=== PATIENT | male | born 1980 | race Caucasian/White ===

== ENCOUNTER 2016-12-26 08:18 | Day surgery (SDC) | payer BC ==
[~2016-12-26] VITALS: Ht 175.3 cm; Wt 91.0 kg
[~2016-12-26 08:18] MED LIST: DICY10CA48 PO; LIDOCAINE 1% (10mg/ml) 2ml SDV INJ ONE; LR 1,000 ML IV SCH
--- OUTSIDE RECORDS SUMMARY | 2016-12-26 08:23 | XMS REPORT | Referral Summary ---
Author Author [facility] Organization [facility] Address Unknown Phone Unavailable Care Team Providers Care Extractor Operator Solvent Process Name Role Phone Alma Garcia Primary Care Physician [phone] Encounter [facility] [phone] Date(s): 11/18/16 - 11/18/16 [facility] [address] [place] [address] ZEYAD Lacy [id number] Discharge Diagnosis: LLQ pain Discharge Diagnosis: Diverticulitis Discharge Diagnosis: Diverticulitis of large intestine with perforation and abscess with bleeding Discharge Disposition: 01-Home or Self Care Attending Physician: Steve Lui MD Admitting Physician: Steve Lui MD Referring Physician: Walter Garcia MD Vital Signs Most recent to 1 oldest [Reference Range]: Temperature Oral 36.7 degC [35.8-37.3 degC] (11/18/16 3:53 PM) Peripheral Pulse 96 bpm Rate [60-100 bpm] (11/18/16 3:53 PM) Respiratory Rate 20 br/min [14-20 br/min] (11/18/16 3:53 PM) Blood Pressure 106/70 mmHg [90-140/60-90 mmHg] (11/18/16 3:53 PM) Problem List Condition Effective Dates Status Health Status Informant Acute Active pain(Confirmed) Antimicrobial Active resistant organism(Confirmed)1 Antimicrobial Active resistant organism(Confirmed)2 Antimicrobial Active resistant organism(Confirmed)3 Anxiety(Confirmed) Active At risk for Active infection(Confirmed) 4 Beta lactam Active resistant bacterial infection(Confirmed) 5 Beta lactam Active resistant bacterial infection(Confirmed) 6 Beta lactam Active resistant bacterial infection(Confirmed) 7 Bowel Active dysfunction(Confirme d)8 Diverticulitis(Confi Active rmed) Irregular Active heartbeat(Confirmed) Nephrolithiasis(Conf Active irmed) Mitral valve Active prolapse(Confirmed) Depression(Confirmed Active ) Obesity(Confirmed) Active patient Obesity(Confirmed) Active patient Tobacco Active patient user(Confirmed) TIA (transient Active ischemic attack)(Confirmed) 1Wound from NOT FOUND collected 08/26/16 17:00:00 TRANSACTION PROCESSOR 2Wound from NOT FOUND collected 08/26/16 17:00:00 TRANSACTION PROCESSOR 3Wound from NOT FOUND collected 08/26/16 17:00:00 TRANSACTION PROCESSOR 4Problem added automatically by system based on initiation of At Risk for Infection in Nutrition Plan of Care 5Wound from NOT FOUND collected 08/26/16 17:00:00 TRANSACTION PROCESSOR 6Wound from NOT FOUND collected 08/26/16 17:00:00 TRANSACTION PROCESSOR 7Wound from NOT FOUND collected 08/26/16 17:00:00 TRANSACTION PROCESSOR 8Problem added automatically by system based on initiation of Bowel Dysfunction Plan of Care Allergies, Adverse Reactions, Alerts No Known Medication Allergies Medications Bactrim DS 800 mg-160 mg oral tablet 1 tabs, Oral, BID, X 14 days, # 28 tabs, 0 Refill(s), Pharmacy: [facility] #[id number] Start Date: 11/18/16 Stop Date: 12/02/16 Status: Ordered Cipro Oral, q12hr, 0 Refill(s) Start Date: 11/18/16 Status: Ordered Compazine 0 Refill(s) Start Date: 11/18/16 Status: Ordered Flagyl 500 mg oral tablet mg tabs, Oral, q8hr, 0 Refill(s) Start Date: 11/18/16 Status: Ordered ibuprofen 800 mg, Oral, BID, 0 Refill(s) Start Date: 08/25/16 Status: Ordered Gary 5 mg-325 mg oral tablet tabs, Oral, q6hr, 0 Refill(s) Start Date: 11/18/16 Status: Ordered Tylenol Extra Strength 1,000 mg, Oral, BID, as needed for pain, 0 Refill(s) Start Date: 08/25/16 Status: Ordered Results No data available for this section Immunizations Given and Recorded Vaccine Date Status Refusal Reason tetanus-diphth toxoids (Td) adult/adol 04/10/11 Recorded Procedures Procedure Date Related Diagnosis Body Site Laparoscopic cholecystectomy1 07/04/16 Cardiac catheterisation 2010 Cardiac catheterisation 2006 Hernia, inguinal 1robotic with firfly imaging, for Biliary Dyskinesia Social History Social History Type Response Smoking Status Current every day smoker; Type: Cigarettes; Tobacco use per day: 1 Pack Assessment and Plan Extracted from: Title: Ambulatory Patient Education Author: Steve Lui MD Date: Emergency Medicine Diverticulitis Diverticulitis is inflammation or infection of small pouches in your colon that form when you have a condition called diverticulosis. The pouches in your colon are called diverticula. Your colon, or large intestine, is where water is absorbed and stool is formed. Complications of diverticulitis can include: Bleeding. Severe infection. Severe pain. Perforation of your colon. Obstruction of your colon. CAUSES Diverticulitis is caused by bacteria. Diverticulitis happens when stool becomes trapped in diverticula. This allows bacteria to grow in the diverticula, which can lead to inflammation and infection. RISK FACTORS People with diverticulosis are at risk for diverticulitis. Eating a diet that does not include enough fiber from fruits and vegetables may make diverticulitis more likely to develop. SYMPTOMS Symptoms of diverticulitis may include: Abdominal pain and tenderness. The pain is normally located on the left side of the abdomen, but may occur in other areas. Fever and chills. Bloating. Cramping. Nausea. Vomiting. Constipation. Diarrhea. Blood in your stool. DIAGNOSIS Your health care provider will ask you about your medical history and do a physical exam. You may need to have tests done because many medical conditions can cause the same symptoms as diverticulitis. Tests may include: Blood tests. Urine tests. Imaging tests of the abdomen, including X-rays and CT scans. When your condition is under control, your health care provider may recommend that you have a colonoscopy. A colonoscopy can show how severe your diverticula are and whether something else is causing your symptoms. TREATMENT Most cases of diverticulitis are mild and can be treated at home. Treatment may include: Taking qvxj-xex-ntbvjyy pain medicines. Following a clear liquid diet. Taking antibiotic medicines by mouth for 710 days. More severe cases may be treated at a hospital. Treatment may include: Not eating or drinking. Taking prescription pain medicine. Receiving antibiotic medicines through an IV tube. Receiving fluids and nutrition through an IV tube. Surgery. HOME CARE INSTRUCTIONS Follow your health care provider's instructions carefully. Follow a full liquid diet or other diet as directed by your health care provider. After your symptoms improve, your health care provider may tell you to change your diet. He or she may recommend you eat a high-fiber diet. Fruits and vegetables are good sources of fiber. Fiber makes it easier to pass stool. Take fiber supplements or probiotics as directed by your health care provider. Only take medicines as directed by your health care provider. Keep all your follow-up appointments. SEEK MEDICAL CARE IF: Your pain does not improve. You have a hard time eating food. Your bowel movements do not return to normal. SEEK IMMEDIATE MEDICAL CARE IF: Your pain becomes worse. Your symptoms do not get better. Your symptoms suddenly get worse. You have a fever. You have repeated vomiting. You have bloody or black, tarry stools. MAKE SURE YOU: Understand these instructions. Will watch your condition. Will get help right away if you are not doing well or get worse. This information is not intended to replace advice given to you by your health care provider. Make sure you discuss any questions you have with your health care provider. Document Released: 06/24/2006 Document Revised: 09/19/2014 Document Reviewed: [employer] Patient Education 2016 [employer] No follow up information was provided.
--- OUTSIDE RECORDS SUMMARY | 2016-12-26 08:23 | XMS REPORT | Continuity of Care Document ---
Author Author [facility] Organization [facility] Address Unknown Phone Unavailable Allergies Active Description Code Type Severity Reaction Onset Reported/Identified Relationship to Patient Clinical Status Yes No Known Medication Allergies NKMA N/A N/A 12/04/2014 Yes No Known Medication Allergies NKMA N/A N/A 12/04/2014 Medications Medication Packaging Start Date Stop Date Route Dosage Sig venlafaxine(Effexor XR 75 mg oral capsule, extended release ) 2 caps 02/26/2015 08/25/2016 Oral 150 mg 150 mg=2 caps, Oral, Daily, 30 caps, 0 Refill(s) albuterol(Ventolin HFA 90 mcg/inh inhalation aerosol) 2 puffs 02/26/2015 03/10/2015 Inhalation 2 puffs, Inhalation, QID, for 30 days, PRN: as needed for wheezing, 8 g, 0 Refill(s) meclizine(meclizine 25 mg oral tablet) 1 tabs 01/01/20162015 Oral 25 mg 25 mg=1 tabs, Oral, TID, for 10 days, PRN: as needed for dizziness , 30 tabs, 0 Refill(s) HYDROcodone-acetaminophen(Fitzpatrick 7.5 mg-325 mg oral tablet) 1 tabs 06/17/2016 07/15/2016 Oral 1 tabs, Oral, q6hr, FROM PCP, PRN: as needed for pain, 0 Refill(s) HYDROcodone-acetaminophen(Fitzpatrick 7.5 mg-325 mg oral tablet) 1 tabs 06/17/2016 07/05/2016 Oral 1 tabs, Oral, q6hr, PRN: as needed for pain, 30 tabs, 0 Refill(s) ondansetron(Zofran) 2 mL 08/25/2016 08/27/2016 IV Push 4 mg 4 mg= 2 mL, IV Push, q30min, PRN: Nausea ketorolac(Toradol) 1 mL 08/25/2016 08/25/2016 IV Push 30 mg 30 mg =1 mL, IV Push, Once HYDROmorphone(Dilaudid) 1 mL 08/25/2016 08/25/2016 IV Push 1 mg 1 mg=1 mL, IV Push, Once cefTRIAXone(Rocephin) 10 mL 08/25/2016 08/25/2016 IV Push 1 g 1 g= 10 mL, IV Push, Once metroNIDAZOLE(Flagyl) 100 mL 08/25/2016 08/25/2016 IV Piggyback 500 mg 500 dm=117 mL, 100 mL/hr, IV Piggyback, Once ibuprofen(ibuprofen) 08/25/2016 Oral 800 mg 800 mg, Oral, BID , 0 Refill(s) HYDROmorphone(Dilaudid) 1 mL 08/25/2016 08/25/2016 IV Push 1 mg 1 mg=1 mL, IV Push, Once Lactated Ringers Injection(Lactated Ringers 1,000 mL) 1,000 mL 08/25/2016 08/27/2016 IV 125 mL/hr, IV, Stop: 09/01/16 17:49:00 ASSOCIATE EDITOR oxyCODONE(oxyCODONE) 08/25/2016 08/27/2016 Oral 5-10 mg, Oral , q4hr, PRN: Pain Moderate (4-6) metoclopramide(metoclopramide) 2 mL 08/25/2016 08/27/2016 IV Push 10 mg 10 mg=2 mL, IV Push, q6hr, PRN: Nausea or Vomiting ondansetron(Zofran) 2 mL 08/25/2016 08/27/2016 IV Push 4 mg 4 mg= 2 mL, IV Push, q6hr, PRN: Nausea or Vomiting HYDROmorphone(Dilaudid range dose) 1 mL 08/25/2016 08/27/2016 IV Push 1 mg 1 mg=1 mL, IV Push, q2hr, PRN: Pain Severe (7-10) metroNIDAZOLE(Flagyl) 100 mL 08/25/2016 08/27/2016 IV Piggyback 500 mg 500 pi=890 mL, 100 mL/hr, IV Piggyback, BID potassium chloride(potassium chloride 10 mEq/50 mL intravenous solution) 50 mL 08/25/2016 08/25/2016 IV Piggyback 10 mEq 10 mEq=50 mL, 50 mL/hr, IV Piggyback, q1hr acetaminophen(acetaminophen) 2 tabs 08/25/2016 08/27/2016 Oral 1,000 mg 1,000 mg=2 tabs, Oral, q6hr, PRN: Fever potassium chloride(potassium chloride 10 mEq/50 mL intravenous solution) 100 mL 08/26/2016 08/26/2016 IV Piggyback 10 mEq 10 aNw=976 mL, 100 mL/hr, IV Piggyback, q1hr midazolam(Versed) 1 mL 08/26/2016 08/26/2016 IV Push 1 mg 1 mg= 1 mL, IV Push, q5min, PRN: Sedation lidocaine(lidocaine 1% (buffered) injection; 10mL) 10 mL 08/26/2016 08/26/2016 IntraDermal 10 mL, IntraDermal, Once fentaNYL(Sublimaze) 1 mL 08/26/2016 08/26/2016 IV Push 50 mcg 50 mcg=1 mL, IV Push, q5min, PRN: Sedation Sodium Chloride 0.9%(sodium chloride 0.9% 500 mL) 500 mL 08/26/2016 08/26/2016 IV KVO, IV cefuroxime(Ceftin 500 mg oral tablet) 1 tabs 08/27/20162015 Oral 500 mg 500 mg=1 tabs, Oral, q24hr metroNIDAZOLE(metroNIDAZOLE 500 mg oral tablet) 1 tabs 08/27/2016 09/02/2016 Oral 500 mg 500 mg=1 tabs, Oral, BID, 28 tabs, 0 Refill(s) cefuroxime(cefuroxime 500 mg oral tablet) 1 tabs 08/27/201602/2016 Oral 500 mg 500 mg=1 tabs, Oral, BID, 28 tabs, 0 Refill(s) oxyCODONE(oxyCODONE 5 mg oral tablet) 08/27/2016 09/27/2016 Oral 5-10 mg, Oral, q4hr, PRN: Pain Moderate (4-6), 30 tabs, 0 Refill(s) metroNIDAZOLE(Flagyl 500 mg oral tablet) tabs 11/18/2016 Oral mg mg=tabs, Oral, q8hr, 0 Refill(s) ciprofloxacin(Cipro) 11/18/2016 Oral Oral, q12hr, 0 Refill( s) prochlorperazine(Compazine) 11/18/2016 0 Refill(s) HYDROcodone-acetaminophen(Fitzpatrick 5 mg-325 mg oral tablet) tabs 11/18/2016 Oral tabs, Oral, q6hr, 0 Refill(s) sulfamethoxazole-trimethoprim(Bactrim DS 800 mg-160 mg oral tablet) 1 tabs 12/02/2016 Oral 1 tabs, Oral, BID, for 14 days, 28 tabs, 0 Refill(s) Problems Date Dx Coded Attending Type Code Diagnosis Diagnosed By 03/18/2016 Nguyen Denise Final F32.9 Major depressive disorder, single episode, unspecified 03/18/2016 Nguyen Denise Reason R45.851 Suicidal ideations 08/25/2016 Mckoy Stephen Admitting K57.32 08/29/2016 Mckoy Stephen Final E87.6 Hypokalemia 08/29/2016 Mckoy Stephen Final F17.210 Nicotine dependence, cigarettes, uncomplicated 08/29/2016 Mckoy Stephen Final I34.1 Nonrheumatic mitral (valve) prolapse 08/29/2016 Mckoy Stephen Admitting R10.32 Left lower quadrant pain 08/29/2016 Mckoy Stephen Final Z86.73 Personal history of transient ischemic attack (TIA), and cerebral infarctio 08/29/2016 Mckoy Stephen Final K57.20 Diverticulitis of large intestine with perforation and abscess without blee Procedures Code Description Performed By Performed On [id number] Drainage of Peritoneal Cavity with Drainage Device, Percutaneous Approach 08/26/2016 Results Test Result Range CBC With Platelet and Differential - 03/10/16 21:15 Absolute Basophils 0.03 10*3 0.00-0.20 Absolute Eosinophils 0.27 10*3 0.00-0.50 Absolute Lymphocytes 2.60 10*3 0.80-3.30 Absolute Monocytes 0.93 10*3 0.30-1.00 Absolute Neutrophils 5.29 10*3 1.90-7.00 Basophils 0 % 0-2 Eosinophils 3 % 0-4 HCT 41.2 % 42.0-52.0 HGB 14.0 g/dL 14.0-18.0 Immature Granulocytes 0.3 % 0.0-1.0 Lymphocytes 28 % 20-46 MCH 29.9 pg 27.0-32.0 MCHC 34.0 g/dL 32.0-36.0 MCV 88.0 fL 82.0-99.0 Monocytes 10 % 4-11 MPV 9.4 fL 9.4-12.3 Neutrophils 58 % 51-75 Platelet Count 251 K/uL 150-400 RBC 4.68 10*6/uL 4.60-6.20 RDW 13.1 % 11.5-14.5 WBC 9.2 K/uL 4.8-10.8 Comprehensive Metabolic Panel (CMP) - 03/10/16 21:15 Albumin 3.5 g/dL 3.5-4.8 Alkaline Phosphatase 64 U/L 26-104 ALT (SGPT) 29 U/L 17-63 Anion Gap 9 NA 3-20 AST (SGOT) 23 U/L 15-41 Bilirubin Total 0.7 mg/dL 0.2-1.2 BUN 15 mg/dL 4-20 Calcium 9.2 mg/dL 8.6-10.0 Chloride 109 mEq/L 99-109 CO2 24 mEq/L 22-32 Creatinine 0.91 mg/dL 0.64-1.27 Globulin 2.7 g/dL 1.9-4.3 Glucose 98 mg/dL 70-100 Potassium 3.5 mEq/L 3.6-5.1 Protein 6.2 g/dL 6.1-7.9 Sodium 142 mEq/L 136-144 Obstetric Panel - 07/28/16 08:59 Absolute Basophils 0.02 10*3 0.00-0.20 Absolute Eosinophils 0.07 10*3 0.00-0.50 Absolute Lymphocytes 1.37 10*3 0.80-3.30 Absolute Monocytes 0.39 10*3 0.30-1.00 Absolute Neutrophils 8.46 10*3 1.90-7.00 Basophils 0 % 0-2 Eosinophils 1 % 0-4 HCT 39.0 % 37.0-47.0 HGB 13.1 g/dL 12.0-16.0 Immature Granulocytes 0.2 % 0.0-1.0 Lymphocytes 13 % 20-46 MCH 31.0 pg 27.0-32.0 MCHC 33.6 g/dL 32.0-36.0 MCV 92.4 fL 82.0-99.0 Monocytes 4 % 4-11 MPV 11.1 fL 8.8-14.8 Neutrophils 82 % 51-75 Platelet Count 269 K/uL 150-400 RBC 4.22 10*6/uL 4.00-5.20 RDW 13.1 % 11.5-14.5 WBC 10.3 K/uL 4.8-10.8 Hepatitis B Surface Antigen Negative RPR Non-reactive NA Rubella Antibody, IgG 2.18 OD Ratio > 1.09 Rubella IgG Positive NA MMRV Interpretation - NA eGFR - 03/10/16 21:15 eGFR >60 NA >60 TSH with Reflex Free T4 - 03/10/16 21:15 TSH with Reflex Free T4 1.57 uIU/mL 0.35- 5.50 Urinalysis with reflex microscopic - 03/10/16 22:10 Appearance Cloudy NA Bilirubin Negative NA Negative Blood Negative NA Negative Color Yellow NA Glucose, Urine Negative Negative Ketones Negative Negative Leukocyte Esterase Negative NA Negative Nitrites Negative NA Negative pH 6.0 NA 5.0-8.0 Protein Negative NA Negative Specific [place] 1.020 NA 1.003-1.030 UA Collection type Voided NA Urobilinogen 2.0 mg/dL <1.0 CBC With Platelet No Differential - 08/26/16 05:02 HCT 34.3 % 42.0-52.0 HGB 11.0 g/dL 14.0-18.0 MCH 28.7 pg 27.0-32.0 MCHC 32.1 g/dL 32.0-36.0 MCV 89.6 fL 82.0-99.0 MPV 9.4 fL 9.4-12.3 Platelet Count 269 K/uL 150-400 RBC 3.83 10*6/uL 4.60-6.20 RDW 13.2 % 11.5-14.5 WBC 11.2 K/uL 4.8-10.8 Renal Function Panel - 08/26/16 05:02 Albumin 2.4 g/dL 3.5-4.8 Anion Gap 6 NA 3-20 BUN 10 mg/dL 4-20 Calcium 8.1 mg/dL 8.6-10.0 Chloride 104 mEq/L 99-109 CO2 25 mEq/L 22-32 Creatinine 0.85 mg/dL 0.64-1.27 Glucose 102 mg/dL 70-100 Phosphorus 2.7 mg/dL 2.4-4.7 Potassium 3.3 mEq/L 3.6-5.1 Sodium 135 mEq/L 136-144 Magnesium - 08/26/16 05:02 Magnesium 2.0 mg/dL 1.8-2.5 eGFR - 08/26/16 05:02 eGFR >60 NA >60 PTT/PT (INR) - 08/26/16 05:02 INR 1.3 NA 0.9-1.2 PTT 29.8 seconds 25.0-35.0 CBC With Platelet No Differential - 08/27/16 07:07 HCT 33.9 % 42.0-52.0 HGB 11.0 g/dL 14.0-18.0 MCH 28.8 pg 27.0-32.0 MCHC 32.4 g/dL 32.0-36.0 MCV 88.7 fL 82.0-99.0 MPV 9.3 fL 9.4-12.3 Platelet Count 341 K/uL 150-400 RBC 3.82 10*6/uL 4.60-6.20 RDW 12.7 % 11.5-14.5 WBC 7.7 K/uL 4.8-10.8 Renal Function Panel - 08/27/16 07:07 Albumin 2.3 g/dL 3.5-4.8 Anion Gap 8 NA 3-20 BUN 5 mg/dL 4-20 Calcium 8.1 mg/dL 8.6-10.0 Chloride 104 mEq/L 99-109 CO2 27 mEq/L 22-32 Creatinine 0.77 mg/dL 0.64-1.27 Glucose 103 mg/dL 70-100 Phosphorus 2.7 mg/dL 2.4-4.7 Potassium 3.5 mEq/L 3.6-5.1 Sodium 139 mEq/L 136-144 Magnesium - 08/27/16 07:07 Magnesium 2.1 mg/dL 1.8-2.5 eGFR - 08/27/16 07:07 eGFR >60 NA >60 Encounters ACCT No. Visit Date/Time Discharge Status Pt. Type Provider Facility Loc./Unit Complaint [id number] 08/25/2016 12:28:00 2015 19:17:00 DIS Inpatient Mckoy Stephen [facility] J5W Diverticulitis, abd abscess [id number] 03/10/2016 12:53:00 2015 00:30:00 DIS Emergency [facility]ise [facility] [place] [facility] [id number] 11/19/2016 05:16:48 Document Registration [id number] 08/28/2016 05:16:32 Document Registration [id number] 08/27/2016 05:15:50 Document Registration [id number] 08/26/2016 05:17:23 Document Registration [id number] 06/18/2016 05:17:39 Document Registration [id number] 01/02/2016 05:18:03 Document Registration [id number] 07/18/2015 12:37:40 Document Registration [id number] 07/18/2015 12:29:58 Document Registration
--- OUTSIDE RECORDS SUMMARY | 2016-12-26 08:23 | XMS REPORT | Referral Summary ---
Author Author [facility] Organization [facility] Address Unknown Phone Unavailable Care Team Providers Care Geospatial Information Technologist Name Role Phone Alma Garcia Primary Care Physician [phone] Encounter VC Date(s): 07/15/16 - 07/15/16 [facility] [address] [place] [address] ZEYAD Lacy [id number] Discharge Diagnosis: S/p laparoscopic cholecystectomy Discharge Disposition: 01-Home or Self Care Attending Physician: Jessica Hartman APRN Admitting Physician: Jessica Hartman APRN Referring Physician: Walter Garcia MD Vital Signs Most recent to 1 oldest [Reference Range]: Temperature Tympanic 36.7 degC [36.6-38.1 degC] (07/15/16 9:47 AM) Problem List Condition Effective Dates Status Health Status Informant Anxiety(Confirmed) Active Irregular Active heartbeat(Confirmed) Nephrolithiasis(Conf Active irmed) Mitral valve Active prolapse(Confirmed) Depression(Confirmed Active ) Obesity(Confirmed) Active patient Obesity(Confirmed) Active patient Tobacco Active patient user(Confirmed) TIA (transient Active ischemic attack)(Confirmed) Allergies, Adverse Reactions, Alerts No Known Medication Allergies Medications Effexor XR 75 mg oral capsule, extended release 150 mg 2 caps, Oral, Daily, # 30 caps, 0 Refill(s) Start Date: 02/26/15 [facility] See Instructions, OXYCARBONZINE (SIEZURE MED USED FOR A MOOD STABILIZER) 75 MG QD, 0 Refill(s) Start Date: 06/17/16 Status: Ordered Results No data available for this section Immunizations Vaccine Date Refusal Reason tetanus-diphth toxoids (Td) adult/adol 04/10/11 Procedures Procedure Date Related Diagnosis Body Site Laparoscopic cholecystectomy1 07/04/16 Cardiac catheterisation 2009 Cardiac catheterisation 2006 Hernia, inguinal 1robotic with firfly imaging, for Biliary Dyskinesia Social History Social History Type Response Smoking Status Current every day smoker; Type: Cigarettes; Tobacco use per day: 1 Pack Assessment and Plan Extracted from: Title: Office Visit Note Author: Jessica Hartman WHITE KID BUFFER Date: 07/15/16 Assessment/Plan 1.S/p laparoscopic cholecystectomy Pathology indicates benign gallbladder with minimal chronicmucosal inflammation. No atypia or neoplasm identified. Ordered: Postoperative Est [id number] Continue to use common sense. If an activity is causing pain, that is a sign that you need to "back off" and wait a little longer before lifting something that heavy or doing that activity. Do not hesitate to contact us with any surgical concerns. Continue with your general medical care through your primary care physician.
--- OUTSIDE RECORDS SUMMARY | 2016-12-26 08:23 | XMS REPORT | Continuity of Care Document ---
Author Author [facility] Organization [facility] Address Unknown Phone Unavailable Support Name Relationship Address Phone HATTIE ZAPIEN MD Caregiver [address] [place] [address] Unavailable JANUARYJAMEY DO Caregiver [address] [place] [address] Unavailable BLANCHE HARTMAN Next Of Kin [address] [place] [address] Insurance Providers Guarantor Michael Hartman Address [address] [place] [address] Email [email or web address] Policy Number [id number] Subscriber's Name Michael Hartman Relationship 18 Self Group Number [id number] Advance Directives Directive Response Recorded Date/Time Advanced Directives Type None 06/04/16 10:19am Chief Complaint and Reason for Visit Chief Complaint Abdominal Pain Reason for Visit [id number] Problems Active Problems Medical Problem Onset Date Status Anxiety Unknown Chronic Depression Unknown Chronic Heart palpitations Unknown Acute History of nephrolithiasis Unknown Chronic Irregular heart beat Unknown Chronic Left ankle sprain Unknown Acute Mitral valve prolapse Unknown Chronic Nephrolithiasis Unknown Sinusitis Unknown Acute TIA (transient ischemic attack) Unknown Past Problems Medical Problem Onset Date Abdominal pain, left lower quadrant Unknown Constipation by delayed colonic transit Unknown Diverticulitis Unknown Diverticulitis of intestine with abscess Unknown Kidney stone on left side Unknown RUQ abdominal pain Unknown Right lower quadrant abdominal pain Unknown Medications Current Home Medications Medication Dose Units Route Directions Days Qty Instructions Start Date Dicyclomine Hcl (Bentyl) 10 Mg Capsule 10 Mg Oral Every 6 Hr Prn as needed for Cramps 10 Days 10 Tablet 11/23/16 Hydrocodone/Acetaminophen ([place] 5-325 Tablet) 5-325 Tablet 1 Tab Oral Every 6 Hours as needed for Pain 11/23/16 Sulfamethoxazole/Trimethoprim (Sulfamethoxazole-Tmp Ds Tablet) 1 Each Tablet 1 Tab Oral Twice A Day 11/23/16 Past Home Medications Medication Directions Ordered Status Aspirin 81 Mg Tablet, 81 Mg Oral Daily 03/23/11 Discontinued Hydrocodone/Acetaminophen ([place] 5-325 Tablet) 5-325 Tablet, 1-2 Tab Oral Four Times Daily as needed for Pain 09/19/16 Discontinued Levofloxacin (Levaquin) 500 Mg Tablet, Daily 10/27/16 Discontinued Metoprolol Succinate (Toprol Xl) 50 Mg Tab.sr.24h, 1 Tab Oral Daily 10/01/08 Discontinued Metronidazole 500 Mg Tablet, 500 Mg Oral Three Times A Day 10/27/16 Discontinued Simvastatin 20 Mg Tablet, 20 Mg Oral Daily 03/23/11 Discontinued Sulfamethoxazole/Trimethoprim (Sulfamethoxazole-Tmp Ds Tablet) 1 Each Tablet, 1 Tab Oral Twice A Day 10/30/16 Discontinued Social History Social History Problem Response Recorded Date/Time Onset Date Status Chewing Tobacco Status No 11/23/2016 10:01pm Not Applicable Not Applicable Hx Substance Use No 11/23/2016 10:01pm Not Applicable Not Applicable Hx Alcohol Use N HX OF 11/23/2016 10:01pm Not Applicable Not Applicable Has the pt used tobacco in the last 12 months Yes 10/27/2016 11:33am Not Applicable Not Applicable Tobacco Usage none 12/14/2013 3:02am Not Applicable Not Applicable Query Response Start Date Stop Date Smoking Status Current every day smoker Hospital Discharge Instructions No hospital discharge instructions. Plan of Care Discharge Date 11/23/16 11:45pm Disposition 01 DISCHARGED HOME, SELF-CARE Condition at Discharge Improved Instructions/Education Provided Constipation (ED) Prescriptions See Medication Section Referrals HATTIE ZAPIEN MD Order Date: 1 Week Address: [address] [place] [address] Note: Additional Instructions/Education You have constipation. Take miralax up to six times per day for the next week. Ibuprofen or naproxen can help with the anticipated pain. Bentyl can help with the cramping. Once you have decreased your stool burden, take the miralax daily to help maintain good bowel habits. Follow up with your doctor in the next week. Care Plan and Goals Physician Care Plan Problem: Constipation Goal: Follow up with primary care provider Instructions: Take medications and follow care plan as discussed/written Functional Status No functional status results. Allergies, Adverse Reactions, Alerts Allergen Type Severity Reaction Status Last Updated No Known Drug Allergies Allergy Unknown Active 11/24/16 Immunizations Query Response on File Recorded Date/Time Hx Influenza Vaccination No 10/27/16 11:33am Hx Pneumococcal Vaccination No 10/27/16 11:33am Hx Influenza Vaccination No 10/27/16 11:33am Hx Tetanus Diptheria Y 2-3 YRS. AGO 12/12/13 12:06pm Influenza Vaccine Hx NOT THIS SEASON 11/23/16 10:01pm Tetanus Diptheria Vaccine History 2012-11/23/16 10:01pm Vital Signs Acute Vital Signs Vital Response Date/Time Temperature (Fahrenheit) 97.5 deg F (96.8 - 99.1) 11/14/2016 10:06pm Temperature (Calculated Celsius) 36.83848 degrees C (36.0 - 37.3) 11/14/2016 10:06pm Pulse Rate (adult) 62 bpm (60 - 100) 11/23/2016 11:45pm Respiratory Rate 14 breaths/min (10 - 20) 11/15/2016 2:12am O2 Sat by Pulse Oximetry 97 % (90 - 100) 11/23/2016 11:45pm Oxygen Delivery Method Room Air 10/30/2016 4:18pm Blood Pressure 104/65 mm Hg 11/23/2016 11:45pm Blood Pressure Source Automatic Cuff 10/30/2016 4:18pm Height (Feet) 5 feet 11/14/2016 10:06pm Height (Inches) 9.00 inches 11/14/2016 10:06pm Weight (Kilograms) 95.700 kg 11/14/2016 10:06pm Body Mass Index (BMI) 31.0 11/14/2016 10:06pm Results Laboratory Results Test Name Result Units Flags Reference Collection Date/Time Result Date/ Time Comments Lipase 88 U/L 23-300 10/27/2016 7:58am 10/27/2016 8:34am Neutrophils % (Manual) 43.0 % 33-66 11/14/2016 10:56pm 11/14/2016 11: 37pm Lymphocytes % (Manual) 46.0 % H 23-45 11/14/2016 10:56pm 11/14/2016 11: 37pm Monocytes % (Manual) 2.0 % 0-9.0 11/14/2016 10:56pm 11/14/2016 11:37pm Basophils % (Manual) 1.0 % 0-2 11/14/2016 10:56pm 11/14/2016 11:37pm Metamyelocytes % 8.0 % H 0-0 11/14/2016 10:56pm 11/14/2016 11:37pm Absolute Neutrophils (Manual) 2.9 T/MM3 1.8-7.7 11/14/2016 10:56pm 11:37pm Lymphocytes # (Manual) 3.1 T/MM3 1-4.8 11/14/2016 10:56pm 11/14/2016 11 :37pm Monocytes # (Manual) 0.1 T/MM3 0-0.8 11/14/2016 10:56pm 11/14/2016 11: 37pm Basophils # (Manual) 0.1 T/MM3 0-0.2 11/14/2016 10:56pm 11/14/2016 11: 37pm Metamyelocytes # 0.5 T/MM3 11/14/2016 10:56pm 11/14/2016 11:37pm Red Cell Morphology Comment NORMAL 11/14/2016 10:56pm 11/14/2016 11 :37pm Total Bilirubin 0.40 MG/DL 0.20-1.30 11/14/2016 10:56pm 11/14/2016 11: 19pm Alkaline Phosphatase 53 U/L 38-126 11/14/2016 10:56pm 11/14/2016 11: 19pm Total Protein 6.4 G/DL 6.3-8.2 11/14/2016 10:56pm 11/14/2016 11:19pm Albumin 3.8 G/DL 3.5-5.0 11/14/2016 10:56pm 11/14/2016 11:19pm Globulin 2.6 G/DL 2.4-3.6 11/14/2016 10:56pm 11/14/2016 11:19pm Albumin/Globulin Ratio 1.5 RATIO 1.1-2.2 11/14/2016 10:56pm 11/14/2016 11:19pm Aspartate Amino Transf (AST/SGOT) 18 U/L 17-59 11/14/2016 10:56pm 11/14 11:19pm Alanine Aminotransferase (ALT/SGPT) 34 U/L 21-72 11/14/2016 10:56pm 11:19pm Urine Collection Type CLEANCATCH-MIDSTREAM 11/14/2016 10:56pm 11/14 11:05pm Urine Color YELLOW YELLOW 11/14/2016 10:56pm 11/14/2016 11:05pm Urine Turbidity CLEAR CLEAR 11/14/2016 10:56pm 11/14/2016 11:05pm Urine Specific [place] 1.020 1.015-1.025 11/14/2016 10:56pm 2016 11:05pm Urine pH 6.0 5.0-8.0 11/14/2016 10:56pm 11/14/2016 11:05pm Urine Leukocyte Esterase NEGATIVE NEGATIVE 11/14/2016 10:56pm 2016 11:05pm Urine Nitrite NEGATIVE NEGATIVE 11/14/2016 10:56pm 11/14/2016 11: 05pm Urine Protein NEGATIVE NEGATIVE 11/14/2016 10:56pm 11/14/2016 11: 05pm Urine Glucose (UA) NEGATIVE NEGATIVE 11/14/2016 10:56pm 11/14/2016 11 :05pm Urine Ketones NEGATIVE NEGATIVE 11/14/2016 10:56pm 11/14/2016 11: 05pm Urine Urobilinogen 0.2 EU/DL NORMAL 11/14/2016 10:56pm 11/14/2016 11: 05pm Urine Bilirubin NEGATIVE NEGATIVE 11/14/2016 10:56pm 11/14/2016 11: 05pm Urine Blood TRACE-INTACT A NEGATIVE 11/14/2016 10:56pm 11/14/2016 11: 05pm Urinalysis Comment MICROSCOPIC NOT IND. 11/14/2016 10:56pm 2016 11:05pm White Blood Count 7.3 T/MM3 4.5-11.0 11/23/2016 9:26pm 11/23/2016 9: 34pm Red Blood Count 4.70 M/MM3 4.50-5.90 11/23/2016 9:26pm 11/23/2016 9: 34pm Hemoglobin 14.0 GM/DL 13.5-17.5 11/23/2016 9:pm 11/23/2016 9:34pm Hematocrit 41.0 % 41-53 11/23/2016 9:26pm 11/23/2016 9:34pm Mean Corpuscular Volume 87.2 UM3 80-100 11/23/2016 9:pm 11/23/2016 9: 34pm Mean Corpuscular Hemoglobin 29.8 UUG 26-34 11/23/2016 9:2016 9:34pm Mean Corpuscular Hemoglobin Concent 34.1 GM/DL 31-37 11/23/2016 9:11/23/2016 9:34pm RDW Standard Deviation 42.6 FL 36.9-50.2 11/23/2016 9:11/23/2016 9 :34pm Platelet Count 232 T/MM3 130-400 11/23/2016 9:11/23/2016 9:34pm Mean Platelet Volume 9.3 UM3 L 9.4-12.4 11/23/2016 9:11/23/2016 9: 34pm Neutrophils (%) (Auto) 53.7 % 33-66 11/23/2016 9:11/23/2016 9: 34pm Lymphocytes (%) (Auto) 33.3 % 23-45 11/23/2016 9:11/23/2016 9: 34pm Monocytes (%) (Auto) 7.6 % 0-9.0 11/23/2016 9:11/23/2016 9:34pm Eosinophils (%) (Auto) 4.7 % H 0-4 11/23/2016 9:11/23/2016 9:34pm Basophils (%) (Auto) 0.6 % 0-2 11/23/2016 9:11/23/2016 9:34pm Immature Granulocyte % (Auto) 0.1 % 0.0-0.5 11/23/2016 9:2016 9:34pm Absolute Neutrophils (auto) 3.9 T/MM3 1.8-7.7 11/23/2016 9:2016 9:34pm Absolute Lymphocytes (auto) 2.4 T/MM3 1-4.8 11/23/2016 9:2016 9:34pm Absolute Monocytes (auto) 0.6 T/MM3 0-0.8 11/23/2016 9:11/23/2016 9:34pm Absolute Eosinophils (auto) 0.3 T/MM3 0-0.5 11/23/2016 9:2016 9:34pm Absolute Basophils (auto) 0.0 T/MM3 0-0.2 11/23/2016 9:11/23/2016 9:34pm Absolute Immature Granulocyte (auto 0.01 T/MM3 0.00-0.03 11/23/2016 9: pm 11/23/2016 9:34pm Icterus Index < 2 0-7 11/23/2016 9:11/23/2016 9:44pm Chemistry Specimen Hemolysis < 15 0-25 11/23/2016 9:11/23/2016 9 :44pm 0-25: Specimen Exhibited No Hemolysis. Turbidity < 20 0-20 11/23/2016 9:11/23/2016 9:44pm Sodium Level 141 MEQ/L 134-144 11/23/2016 9:11/23/2016 9:44pm Potassium Level 3.8 MEQ/L 3.6-5 11/23/2016 9:pm 11/23/2016 9:44pm Chloride Level 108 MEQ/L H 98-107 11/23/2016 9:pm 11/23/2016 9:44pm Carbon Dioxide Level 25 MEQ/L 22-30 11/23/2016 9:11/23/2016 9: 44pm Anion Gap 8 MEQ/L 5-15 11/23/2016 9:pm 11/23/2016 9:44pm Blood Urea Nitrogen 14.0 MG/DL 9-11/23/2016 9:11/23/2016 9: 44pm Creatinine 1.0 MG/DL 0.8-1.5 11/23/2016 9:pm 11/23/2016 9:44pm BUN/Creatinine Ratio 14 RATIO 611/23/2016 9:11/23/2016 9:44pm Glomerular Filtration Rate Calc 85 11/23/2016 9:11/23/2016 9: 44pm Glucose Level 105 MG/DL 75-110 11/23/2016 9:pm 11/23/2016 9:44pm Calculated Osmolality 272 MOSM/KG 261-280 11/23/2016 9:11/23/2016 9:44pm Calcium Level 9.5 MG/DL 8.4-10.2 11/23/2016 9:11/23/2016 9:44pm C-Reactive Protein < 5.0 MG/L 0-9 11/23/2016 9:26pm 11/23/2016 9:51pm Plasma Lactate 1.3 MMOL/L 0.6-2.2 11/23/2016 9:26pm 11/23/2016 9:44pm Procedures Procedure Status Date Provider(s) Ct abd & pelv w/contrast Completed 09/18/16 Comprehen metabolic panel Completed 09/18/16 Assay of lipase Completed 09/18/16 Complete cbc w/auto diff wbc Completed 09/18/16 Hydrate iv infusion add-on Completed 09/18/16 Ther/proph/diag inj iv push Completed 09/18/16 Tx/pro/dx inj new drug addon Completed 09/18/16 Tx/pro/dx inj new drug addon Completed 09/18/16 Emergency dept visit Completed 09/18/16639052"INJECTION, HYDROMORPHONE, UP TO 4 MG" Completed 09/18/16157027"INJECTION, KETOROLAC TROMETHAMINE, PER 15 MG" Completed 09/18/16221648"INJECTION, ONDANSETRON HYDROCHLORIDE, PER 1 MG" Completed 09/18/16890355"INFUSION, NORMAL SALINE SOLUTION , 1000 CC" Completed 09/18/16971311"INFUSION, NORMAL SALINE SOLUTION , 250 CC" Completed 09/18/16956660"LOW OSMOLAR CONTRAST MATERIAL, 300-399 MG/ML IODINE C Completed Ct abd & pelv w/contrast Completed 11/14/16 Comprehen metabolic panel Completed 11/14/16 Urinalysis auto w/o scope Completed 11/14/16 Complete cbc w/auto diff wbc Completed 11/14/16 Hydrate iv infusion add-on Completed 11/14/16 Hydrate iv infusion add-on Completed 11/14/16 Ther/proph/diag iv inf init Completed 11/14/16 Tx/pro/dx inj new drug addon Completed 11/14/16 Tx/pro/dx inj new drug addon Completed 11/14/16 Tx/pro/dx inj new drug addon Completed 11/14/16 Emergency dept visit Completed 11/14/16777369"INJECTION, PROCHLORPERAZINE, UP TO 10 MG" Completed 11/14/16947967"INJECTION, HYDROMORPHONE, UP TO 4 MG" Completed 11/14/16192261"INJECTION, KETOROLAC TROMETHAMINE, PER 15 MG" Completed 11/14/16"INJECTION, LEVOFLOXACIN, 250 MG" Completed 11/14/16"INFUSION, NORMAL SALINE SOLUTION , 1000 CC" Completed 11/14/16"INFUSION, NORMAL SALINE SOLUTION , 250 CC" Completed 11/14/16"INFUSION, NORMAL SALINE SOLUTION , 250 CC" Completed 11/14/165% DEXTROSE/WATER (500 ML=1 UNIT) Completed 11/14/16"LOW OSMOLAR CONTRAST MATERIAL, 300-399 MG/ML IODINE C Completed "INJECTION, METRONIDAZOLE, 500 MG" Completed 11/14/16 Encounters Encounter Location Arrival/Admit Date Discharge/Depart Date Attending Provider Departed Emergency Room [facility] 11/23/16 8:10pm 11/23/16 11: 45pm JANUARYJAMEY DO Departed Emergency Room [facility] 11/14/16 9:57pm 11/15/16 2: 12am DAVID GRACIA MD Discharged Inpatient [facility] 10/28/16 4:48pm 10/30/16 6:40pm JUNIOR RESTREPO FACS, MD Departed Emergency Room [facility] 09/18/16 11:54pm 09/19/16 2: 30am DAVID GRACIA MD Recent Diagnosis
[2016-12-26 08:35] VITALS: Ht 175.3 cm; Wt 91.0 kg
--- NOTE | 2016-12-26 09:57 | ANESPREOP ---
Anesthesia Record Date and Time DATE: 12/26/16 TIME: 09:56 Pre-Op Diagnosis crcs Proposed Surgical Procedure COLONOSCOPY Allergies: Coded Allergies: No Known Drug Allergies (Verified Allergy, Unknown, 12/26/16) Ht/Wt/BMI Height: 5 ' 9.00 " Weight: 91.000 kg BMI: 29.6 kg/m2 Medications Inpatient Medications Current Medications Medications (Trade) Dose Ordered Sig/Yvrose Start Time Stop Time Status Last Admin Dose Admin Lactated Ringer's (Lactated Ringers) 1,000 ml @ 30 mls/hr Q24H 12/26/16 07:00 12/26/16 09:07 30 MLS/HR Dicyclomine HCl (Bentyl) 10 Mg Capsule, 10 MG PO Q6HPRN PRN for CRAMPS Last Taken: on 12/19/16 1200 Currently on Beta Yessica: No Medical/Surgical History Anesthesia PMH: Reports: *Angina (HX MITRAL VALVE PROLAPSE), CVA/Stroke/TIA (4 YEARS AGO HAD TIA'S AND A STROKE WAS GIVEN TPA), Hiatal Hernia (HX OF CHILD) , Reflux (HX OF), Denies: *Diabetes, *Dyspnea, *Hypertension, *RI (NEG STRESS TEST 2009), Anesthesia Reactions (NO AIRWAY ISSUES), Arthritis, Asthma, Blood Transfusion Reac, CHF, COPD, Cancer, Cardiac Arrythmia, Clotting Problems, Deep Vein Thrombosis, Glaucoma, Hepatitis, Malignant Hyperthermia, Pacemaker, Pneumonia, Renal Disease, Seizures, Sleep Apnea, Thyroid Disease Smoking Status: Current every day smoker Has pt. smoked today?: No Use Chewing Tobacco?: No Second Hand Exposure: No Substance Use Type: does not use Alcohol Intake: none Past Surgical History Orthopedic Surgeries: No Abdominal Surgeries: Yes - INGUINAL HERNIA REPAIR 1980, MELIDA Genitourinary Surgeries: No Cardiac Surgeries: Yes - HEART CATH X 2 Endocrine Surgeries: No Reproductive Surgeries: No Neurological Surgeries: No Ear Surgeries: No Nose Surgeries: No Throat Surgeries: No Other Surgeries: Yes - WISDOM TEETH, PYLONIDAL CYST REMOVED Anesthesia Adverse Reactions: FOUND none Hx of Motion Sickness: No Pertinent Findings EKG Rhythm: Sinus Rhythm Physical Exam Respiratory: Bilat breath sounds equal, Lungs clear Cardiovascular: FOUND Regular rate, rhythm, FOUND No murmur Airway Assessment Mallampati Score: II TMD: 3 Fingerbreadths Neck Extension: Good Overall Assessment: No Airway Concerns ASA: 2 Plan Anesthesia Plan: TIVA Discussion Discussed risks/options/alternatives of anesthesia and questions answered. Patient consents. Nursing pain assessment noted. Present: Spouse Attestation Statement Prior to the delivery of any anesthetic medication, I examined the patient, developed the plan, obtained the patient's consent and discussed the risk and benefits of the procedure with the patient/guardian. DEDE RAMIREZ CRNA Dec 26, 2016 09:57
[2016-12-26] MEDS ORDERED: LIDOCAINE 1% (10mg/ml) 2ml SDV ONE (10:32)
[2016-12-26] MEDS ORDERED: PROPOFOL 500mg 50 ML IV ONE (10:32)
[2016-12-26 10:57] VITALS: BP 109/69; PULSE 92; RESP 16; TEMP 98.6; O2SAT 98
[2016-12-26 11:12] VITALS: BP 114/76; PULSE 70; RESP 16; O2SAT 98
--- NOTE | 2016-12-26 11:16 | ANESPO ---
Post-Op Note Date 12/26/16 Time: 11:15 Status Pt Participated in Evaluation: Pt participated in person Vital Signs Date Time Temp Pulse Resp B/P Pulse Ox O2 Delivery O2 Flow Rate FiO2 12/26/16 11:12 70 16 114/76 98 Room Air 12/26/16 10:57 98.6 Respiratory Function: Airway patent, Regular respirations Cardiovascular Function: Regular pulse Mental Status: Alert/oriented Pain Level Intensity: 4 Hydration: Taking po fluids, IV infusing Complications during Recovery None apparent Post-Anesthesia Notes pt. mamta. well Follow-Up Instructions Instructions Per Surgeon Additional Information none DEDE RAMIREZ CRNA Dec 26, 2016 11:16
[2016-12-26 11:27] VITALS: BP 106/68; PULSE 58; RESP 16; O2SAT 98
--- NOTE | 2016-12-26 16:28 | OPNOTEF ---
DATE OF SERVICE 12/26/2016 SURGEON Steve Lui MD PREOPERATIVE DIAGNOSIS Personal history for recurrent bouts of suspected diverticulitis, history for left lower quadrant abdominal pain. History for abnormal CT scan. POSTOPERATIVE DIAGNOSIS Personal history for recurrent bouts of suspected diverticulitis, history for left lower quadrant abdominal pain. History for abnormal CT scan. Sigmoid diverticulosis. Colonic polyps located within the rectal vault, 30 cm, and 40 cm from the anal verge. PROCEDURES Colonoscopy with polypectomies via cold biopsy technique. ANESTHESIA TIVA BRIEF HISTORY/INDICATIONS Mr. Bravo is a 36-year-old gentleman whom despite his young age has had significant history for diverticular disease. The patient apparently initially had presented to [facility] within the last year as a result of a complicated bout of perforated diverticulitis. It appears that he had developed a para-sigmoidal abscess requiring percutaneous drainage. I met the patient a few months ago at [facility] when he had re-presented with recurrent diverticulitis. The patient was managed with intravenous antibiotics. CT scan previously obtained did reveal some evidence for diverticulitis with thickening of the sigmoid colonic wall. The patient has had several additional bouts of diverticulitis and has had somewhat of a "smoldering"/chronic relapsing diverticulitis. He has received multiple bouts of oral antibiotics on an outpatient basis. As a result of the above indications, it was recommended he undergo a colonoscopy for further evaluation. For completeness please refer to notes included in the patient's chart. FINDINGS Upon colonoscopy the patient was found to have a moderate number of diverticula located within the sigmoid colon region. He was found to have several benign appearing colonic polyps that were only on the order of about 5-6 mm in diameter which were removed in their entirety. These were located within the rectal vault, at 30 cm from the anal verge and at 40 cm from the anal verge. There was no evidence for angiodysplastic lesions or deidre malignancies. Endoscopically there was no evidence for acute diverticulitis. The mucosa was not significantly edematous nor erythematous in nature. DESCRIPTION OF PROCEDURE After informed consent was obtained, patient was brought to the endoscopy suite and placed on the table in left lateral decubitus position. The patient subsequently underwent total intravenous anesthesia by the nurse hospice volunteer at my request. Formal time-out was then completed. Next a digital rectal examination was performed. Normal sphincter tone. No rectal masses were appreciated. An Olympus colonoscope was inserted in the anus and advanced through the lumen of the colon under direct visualization at all times until the cecum was ascertained. The triangulation of the teniae coli, ileocecal valve and appendiceal lumen were all visualized. Scope was then slowly withdrawn again while maintaining visualization of the lumen at all times. One began to notice some diverticula at about 40 cm from the anal verge. Some photos were obtained for documentation purposes to illustrate his diverticula. Additionally at 40 cm from the anal verge, the patient was found to have a single polyp on the order of about 5 mm in diameter which was removed in its entirety via cold biopsy technique. Scope was then slowly withdrawn where two additional diminutive appearing colonic polyps were located at 30 cm from the anal verge that were on the order of about 5 mm in diameter which were also removed in their entirety via cold biopsy technique. Colonoscope was withdrawn back to the rectal vault where the patient was found to have an additional benign polyp that was also on the order of about 5 mm in diameter which was removed in its entirety via cold biopsy technique. There was no evidence for angiodysplastic lesions or deidre malignancies throughout the entire colon. J-maneuver was then performed within the rectal vault. No worrisome perianal pathology was noted. Scope was allowed to straighten and withdrawn through the anal verge. The patient tolerated the procedure without difficulty and was sent back to the preop area in stable condition. Await the biopsy results from today's several polypectomies and proceed accordingly with further recommendations thereafter. YAJAIRA
== END 2016-12-26 11:38 | disposition home or self-care (01) ==
LOC: NSC 08:18
PROVIDERS: ATTEND Surgery
DX: K57.30 Diverticulosis of large intestine without perforation or abscess without bleeding (principal); K63.5 Polyp of colon; K62.1 Rectal polyp; Z87.19 Personal history of other diseases of the digestive system; R93.8 Abnormal findings on diagnostic imaging of other specified body structures; F41.9 Anxiety disorder, unspecified; Z86.19 Personal history of other infectious and parasitic diseases; F32.9 Major depressive disorder, single episode, unspecified; Z86.73 Personal history of transient ischemic attack (TIA), and cerebral infarction without residual deficits; I34.1 Nonrheumatic mitral (valve) prolapse; F17.210 Nicotine dependence, cigarettes, uncomplicated; Z79.1 Long term (current) use of non-steroidal anti-inflammatories (NSAID); Z79.899 Other long term (current) drug therapy
CPT/HCPCS: 45380; J2704; J7120

== ENCOUNTER 2017-04-13 09:14 | Inpatient (IN) ==
--- NOTE | 2017-04-13 10:11 | Anesthesia Preoperative Report ---
Anesthesia Preoperative Record - Date and Time Date: 04/13/17 Preoperative Diagnosis: Hx Diverticulitis Z87.19 Proposed Procedure: Robotic Left colon resection NPO Since Date: 04/13/17 NPO Since Time: 00:00 Allergies/Adverse Reactions: Allergies Allergy/AdvReac Type Severity Reaction Status Date / Time No Known Drug Allergies Allergy Unknown Verified 12/26/16 09:07 - Medications Inpatient Medications: Current Medications Heparin Sodium (Porcine) (Heparin) 5,000 unit SUB-Q CONCERT SINGER ONE Stop: 04/13/17 15:35 Ertapenem 1 g/ Sodium Chloride 100 mls @ 200 mls/hr IV PREOP ONE Stop: 04/13/17 16:03 Lactated Ringer's (Lactated Ringers) 1,000 mls @ 30 mls/hr IV .Q24H ANA Lidocaine HCl (Xylocaine-Mpf 1% Vial) 1 mg ID O ONE Stop: 04/13/17 15:30 Home Medications: Home Medications Medication Instructions Recorded Confirmed Type Acetaminophen [Tylenol] 1 - 2 tab PO PRN PRN 04/10/17 04/10/17 History Sulfamethox/Tmp [Bactrim Ds] 1 tab PO DAILY 04/10/17 04/10/17 History Is Patient on Beta Yessica?: No - Medical History Gastrointestional: Reports: Other (Sigmoid diverticulitis recuurent) - Surgical History Cardiac Surgeries/Treatments: Reports: Cardiac Catheterization (X3) GI Surgery/Treatments: Reports: Cholecystectomy, Hernia Repair, Colonoscopy Anesthesia Reactions: None Hx Family Anesthesia Reaction: No History of Motion Sickness: No - Social History Smoking Status: Current every day smoker Hx Chewing Tobacco Use: No Second Hand Exposure: No Substance Use Type: does not use Alcohol Intake Frequency: does not drink - Pertinent Findings Laboratory: CBC and BMP 04/13/17 09:39 EKG Rhythm: Normal Sinus Rhythm - Physical Exam Respiratory Exam: Present: lungs clear Cardiovascular Exam: Present: regular rate and rhythm - Airway Assessment Mallampati Score: II TMD: 3 Fingerbreadths Neck Extension: good Overall Assessment: no airway concerns - ASA ASA Score: 2 - Plan Anesthesia: General Inhalation Gases - Discussion Discussion: Discussed risks/options/alternatives of anesthesia and questions answered. Patient consents. Nursing pain assessment noted. Attestation Statement: Prior to the delivery of any anesthetic medication, I examined the patient, developed the plan, obtained the patient's consent and discussed the risk and benefits of the procedure with the patient/guardian. - Additional Information Seen by Anesthesia: Yes
[2017-04-13 10:12] VITALS: BMI 29.5
[2017-04-13] MEDS: LR 1,000 ML IV SCH ×2 (10:27→12:35)
[2017-04-13] MEDS ORDERED: ROCURONIUM 50 MG/5 ML INJECTION IVP ONE ×2 (11:02→13:59)
[2017-04-13] MEDS ORDERED: SUCCINYLCHOLINE 20mg/mL 10mL INJECTION ONE (11:02)
[2017-04-13] MEDS ORDERED: PROPOFOL 20 ML ONE (11:02)
[2017-04-13] MEDS ORDERED: LIDOCAINE 2% (100mg/5mL) PF 5ml vl ONE (11:02)
[2017-04-13] MEDS: ERTAPENEM 1 G in NS 100 ML IV ONE ×2 (11:20→21:11)
[2017-04-13] MEDS ORDERED: FentaNYL 100 MCG/2 ML INJECTION ONE ×2 (11:34→15:31)
[2017-04-13] MEDS ORDERED: DESFLURANE 240ml LIQUID IH ONE (11:41)
[2017-04-13] MEDS ORDERED: ONDANSETRON 4 MG/2 ML INJECTION ONE (11:43)
[2017-04-13] MEDS ORDERED: DEXAMETHASONE 4 MG/ML INJECTION ONE (11:43)
[2017-04-13] MEDS ORDERED: HYDROMORPHONE 2 MG/ML INJECTION ONE (11:46)
[2017-04-13] MEDS ORDERED: INDOCYANINE GREEN 25mg INJECTION ONE (14:12)
[2017-04-13] MEDS ORDERED: INDOCYANINE GREEN 25mg INJECTION INJ ONE (14:14)
[2017-04-13] MEDS ORDERED: METOCLOPRAMIDE 10mg/2ml INJECTION IVP PRN ×2 (15:24→16:36)
[2017-04-13] MEDS ORDERED: ONDANSETRON 4 MG/2 ML INJECTION IVP PRN ×2 (15:24→16:36)
[2017-04-13] MEDS ORDERED: LIDOCAINE 1% (10mg/ml) 2mL INJ PF SDV ID ONE (15:29)
[2017-04-13] MEDS ORDERED: HEPARIN 5,000unit/ml 1ml INJECTION SUB-Q ONE (15:34)
[2017-04-13] MEDS ORDERED: BUPIVACAINE 0.25%/EPI 1:200,000 30ml SDV SQ ONE (15:41)
--- NOTE | 2017-04-13 16:14 | General Surgery Procedure Note ---
Date of Procedure: 04/13/17 Surgeon: Hu Shovel Logger: Joao Bravo APRN Postoperative Diagnosis: Recurrent diverticulitis Procedure: Robotic assisted sigmoid colectomy with splenic flexure takedown and primary anastomosis Estimated Blood Loss: See Anesthesia Record.
[2017-04-13] MEDS: HYDROMORPHONE 2 MG/ML INJECTION IVP PRN ×2 (16:25→16:48)
[2017-04-13] MEDS ORDERED: HYDROMORPHONE PCA 30mg/30ml VIAL IV PRN (16:36)
[2017-04-13] MEDS ORDERED: MORPHINE SULFATE 2 MG SYRINGE IVP PRN (16:36)
[2017-04-13] MEDS: NS 1,000 ML IV SCH ×2 (16:46→21:11)
--- NOTE | 2017-04-13 18:18 | Anesthesia Postoperative Note ---
- Date and Time Date: 04/13/17 Time: 18:16 - Status Patient Participated in Evaluation: Patient Participated in Person Vital Signs: Temperature 97.7 F 04/13/17 17:00 Pulse Rate 76 04/13/17 17:00 Respiratory Rate 14 04/13/17 17:45 Blood Pressure 138/83 04/13/17 17:00 Pulse Oximetry 97 04/13/17 17:45 Oxygen Delivery Method Nasal Cannula Oxygen Flow Rate 2 Respiratory Function: Airway Patent Cardiovascular Function: Regular Pulse EKG Rhythm: Normal Sinus Rhythm Mental Status: Alert and Oriented Pain Intensity: 8 Hydration: IV Infusing Complications During Recover: None Apparent Post Anesthesia Care Notes: awake and alert rates pain 8/10 currently on dilaudid BUCKLE STAPLER and nurse will bolus morphine prn per dr bourne orders. - Follow-Up Instructions Instructions: Per Surgeon
[2017-04-13] MEDS: KETOROLAC 30 MG/ML INJECTION IVP PRN (21:14)
[2017-04-13] MEDS: D5-1/2NS with KCL 20mEq 1,000 ML IV SCH (21:15)
[2017-04-14] MEDS: D5-1/2NS with KCL 20mEq 1,000 ML IV SCH ×3 (05:28→22:21)
[2017-04-14] MEDS: KETOROLAC 30 MG/ML INJECTION IVP PRN (05:36)
[2017-04-14] MEDS: ENOXAPARIN 40 MG/0.4 ML INJECTION SQ SCH (08:59)
[2017-04-14] MEDS ORDERED: PANTOPRAZOLE 40 MG INJECTION IVP SCH (09:00)
--- NOTE | 2017-04-14 09:15 | Operative Note ---
DATE OF SERVICE 04/13/2017 SURGEON Steve Lui MD PREOPERATIVE DIAGNOSIS Personal history for chronic relapsing diverticulitis. POSTOPERATIVE DIAGNOSIS Personal history for chronic relapsing diverticulitis. PROCEDURE Robotic assisted laparoscopic sigmoid resection with coloproctostomy, mobilization of splenic flexure. ANESTHESIA General tracheal EBL AND FLUIDS Please see chart. BRIEF HISTORY/INDICATIONS Mr. Bravo is a 36-year-old gentleman who, despite his young age, has had significant bouts of diverticulitis. Patient in the past was hospitalized at [facility] a result of a pericolonic abscess from diverticulitis. This did require percutaneous drainage. The patient has had multiple additional bouts of diverticulitis requiring outpatient and inpatient oral and intravenous antibiotics. Unfortunately the patient has essentially developed a chronic relapsing diverticulitis requiring multiple courses of antibiotics. He did undergo a colonoscopy and was found to have several diverticula within the sigmoid colon region. Patient was also found to have a few polyps that were removed in their entirety endoscopically. There was no evidence for inflammatory bowel disease. As a result of the above indications, it was recommended to the patient that he undergo an elective sigmoid resection. Patient presents today to undergo this procedure. For completeness please refer to notes included in the patient's chart. FINDINGS Upon laparoscopy, liver edge was smooth and without nodularities. The omentum and small bowel which was visualized was without marked abnormalities. Attention was focused to the descending colon region/sigmoid colon. One could ascertain upon laparoscopy that there was a segment of the sigmoid colon which was thickened and more fibrotic in nature. This involved the mid sigmoid region. Additionally during the process of mobilization of the splenic flexure one could also see what appeared to be perhaps a prior area of diverticulitis that had involved the splenic flexure region in the remote past. It did appear there was some mild thickening of the colon at the splenic flexure region. Splenic flexure was mobilized in this area where there was some prior questionable inflammation and was unable to be brought forth into the pelvis and was unable therefore to be resected. The area of involvement involving the mid sigmoid colon however was able to be completely resected without incident and coloproctostomy was able to be subsequently completed. DESCRIPTION OF PROCEDURE After informed consent was obtained, patient was brought to the operative suite , placed on the table in supine fashion. The abdomen was then prepped and draped in sterile fashion. Formal time-out was then completed. 0.25% Marcaine with epinephrine was injected just beneath the left subcostal margin. A 4-5 mm incision was then made through the area of analgesia. A Veress needle was then advanced through the small incision into the peritoneal cavity. Pneumoperitoneum was established to a patient pressure of 15 mmHg utilizing carbon dioxide. Additional 0.25% Marcaine with epinephrine was injected just cephalad and to the right of the umbilicus. A 1.5 cm incision was then made overlying this area of analgesia. A 12 mm camera port was then placed through this incision and into the peritoneal cavity. Laparoscope was then inserted through the camera port. One could then see the Veress needle as it coursed through the anterior abdominal wall within the left upper quadrant. Veress needle was removed under direct visualization. Next a da Byron stapler port was then placed within the right lower quadrant 2-3 fingerbreadths medial to the right anterior iliac spine. Assist port was then placed within the right upper quadrant of the abdomen about midway between the camera port and the stapler port. Next two additional 8 mm da Byron ports were then placed within the left upper quadrant and the left lateral abdominal wall. Each port site was placed under direct visualization and pre-injected with 0.25% Marcaine with epinephrine. The patient was then placed in Trendelenburg position and rotated towards his right. Small bowel was then delivered out of the pelvis. Abdominal cavity was explored via the laparoscope. Findings were noted as above. Robot was then docked overlying the patient's left hip at a 45 degree angle. Next small bowel was further dissected out of the pelvic region. There were some adhesions between the terminal ileum and the right lateral pelvic wall. This allowed the small bowel then to be further delivered out of the pelvis to a greater extent. A Graptor retractor was placed in robotic arm #1 which was utilized to grab the sigmoid colon and retract it anteriorly and laterally to the left. Fenestrated bipolar grasper was then placed in robotic arm #2 and hook cautery was then placed in robotic arm #1. Peritoneum was then incised overlying the sacral promontory and the presacral space was entered. The patient was moderately thin and one could actually see the right ureter peristalsing beneath the peritoneum to the right of where the peritoneum had been incised with cautery. At no point in time was electrocautery performed adjacent to the left or right ureter. The peritoneum was then scored from the sacral promontory down into the pelvis. Presacral space was then dissected out under direct visualization. Dissection was carried from the patient's right to the patient's left under direct visualization. The presacral space was carefully dissected out until dissection was beginning to occur along the left lateral pelvic wall. Next the rectum and sigmoid colon were then retracted to the patient's right and anteriorly. The Graptor retractor was placed in robotic arm #2 and fenestrated bipolar grasper was placed within robotic arm # 3. White line of Toldt was then incised along the left pericolic gutter and the left colon was then began to be reflected medially. Fortunately the sigmoid colon although fibrotic and thickened, was not adherent to the left lateral abdominal wall. One could then see the ureter coursing through the retroperitoneum. One could see the peristalsis of the left ureter. Dissection was carried out medially to the ureter and the ureter was left intact. Left colon was continued to be reflected medially. Next, dissection was began along the left lateral pelvic wall at about the sacral promontory overlying the iliac vessels. The colon was then continued to be reflected medially. Now one could then see the presacral space that had already been dissected out posteriorly from the patient's right. Mesorectum was at this point in time completely dissected free circumferentially around the rectosigmoid junction and distal sigmoid colon. Attention was focused back to the rectosigmoid junction. The antimesenteric taeniae coli was identified upon the distal sigmoid colon and followed down until it disappeared upon the proximal rectum. Once the margin of the upper rectum was identified, the mesorectum at this location was incised with electrocautery up to the rectosigmoid junction. A small window was then created posterior to the rectum just beneath this location. The lateral aspect of mesorectum was divided with Vessel Sealer. There was now an opening within the mesorectum posterior to the rectum just beneath the rectosigmoid junction. The da Byron stapler was then placed in robotic arm #1 and placed across the rectum and fired. There was still perhaps a centimeter of rectum remaining. Da Byron stapler was then reloaded and placed across the remaining rectum and fired. Rectum at this time had been completely transected. The remaining mesorectum was now under direct visualization. Remaining mesorectum was then divided under direct visualization utilizing the Vessel Sealer. Next attention was then focused back towards the sacral promontory. One could see that further mobilization of the splenic flexure was going to be needed to provide enough length of the colon to be brought forth into the pelvis. As stated above , one could see that the midportion of the sigmoid colon was thickened and inflamed and somewhat fibrotic, consistent with prior bouts of diverticulitis at this location. White line of Toldt was then continued to be incised in a cephalad direction towards the splenic flexure. One could then see that a portion of the splenic flexure was actually adherent along the lateral aspect of the abdominal wall within the left upper quadrant. It appeared that there perhaps had been some inflammatory changes at this location. The colon was then dissected away from the lateral abdominal wall. The mesentery of the sigmoid colon was then continued to be reflected medially. One could then see Gerota's fascia. Renocolic attachments were then divided under direct visualization utilizing the Vessel Sealer. This resulted in further mobilization of the mesentery of the descending colon region. Next, the splenocolic attachments were then also divided under direct visualization utilizing Vessel Sealer. At this time, the splenic flexure had been completely mobilized. This area of questionable inflammation was just distal beyond the splenic flexure. Once the splenic flexure been completely freed, an attempt was made at bringing the splenic flexure region into the pelvis. This questionable area of inflammation was able to be brought down to just above the sacral promontory. If one however was to obtain proximal clear margin, this would have been located perhaps 4-5 cm above the left iliac spine. It did not appear that if this area of questionable concern was resected, that coloproctostomy could be completed without significant tension on the anastomosis. Additionally there was some concern whether or not if a proximal division of the colon had been performed at the splenic flexure whether or not this portion of the colon could have even been brought into the pelvis to complete a coloproctostomy. After looking at the situation and evaluating it for some time, I elected to go ahead and leave this questionable area of inflammation in place near the splenic flexure and proceed with a typical sigmoid resection. The mesentery to the sigmoid colon was then divided utilizing a combination of hook cautery and a Vessel Sealer under direct visualization. A Hem-o-Yasemin clip was placed upon the larger superior hemorrhoidal vessels within the mesentery proximally and the superior hemorrhoidal vessels were divided distally with the Vessel Sealer. Following division of the mesentery, one could see the Hem-o-Yasemin clips remained to be intact and were "pulsating" with the associated vessels of the mesentery. No bleeding was present. The mesentery was then continued to be divided under direct visualization to an area proximal to the prior areas of inflammation involving the sigmoid colon. This was carried out to a point about 10 cm beyond the splenic flexure upon the mid descending colon region. Mesentery was divided again up to the colon at this location under direct visualization. I then requested that Anesthesia give intravenous ICG. Within 30 seconds, one could then begin to see that the colon was fluorescing well with utilizing Firefly imaging. The colon fluoresced up to and beyond the proposed area of resection, indicative that an adequate blood supply was present. Prior areas of dissection were inspected and found to be hemostatic in nature. Next, a Wavy grasper was then placed upon the staple line of the rectosigmoid junction upon the distal sigmoid/proximal rectum. Robot was then undocked. Next a small 4-5 cm Pfannenstiel incision was then made about two fingerbreadths above the pubic symphysis. Anterior rectus sheath was divided transversely. The posterior rectus sheath and peritoneum was then opened between the rectus muscles longitudinally. Peritoneum was then entered. Charly wound retractor was then placed through the small incision. Wavy grasper was then utilized and the staple line was then delivered up into the Charly wound retractor. Nick clamp was then placed upon the staple line of the rectosigmoid junction. The most proximal portion of the rectum and sigmoid colon was then able to be delivered up through the Charly wound retractor without difficulty. One could see where the mesentery had been divided up to the midsigmoid colon. This area was brought up to and just beneath the just above the Charly wound retractor. The remaining pericolonic fat surrounding this location was then divided and ligated with 0 Vicryl ties. A Zuleyma clamp was then placed upon the colon at this location. Colon was then divided proximally to the Zuleyma clamp and the sigmoid colon was then passed off the table as a surgical specimen. Three Allis clamps were placed upon the transected end of the colon in a triangulated fashion. A 28 mm EEA sizer was able to be advanced into the transected end of the colon. A sterile lap pad was placed around the colon to prevent spillage into the peritoneal cavity. Next a pursestring suture was then placed upon the transected end of the colon utilizing 2-0 Prolene. A 29 mm stapler was then brought forth into the operative field. The anvil portion of the stapler was then placed through the transected end of the colon. Previously placed pursestring suture was then tied securely resulting in nice imbrication of the colon mucosa against the anvil itself. Next the anvil and descending colon was then delivered back through the Charly wound retractor. The lid portion of the Charly wound retractor was then placed upon the wound retractor and pneumoperitoneum was then reestablished to a patient pressure of 15 mmHg utilizing carbon dioxide. The patient was once again placed in a slightly Trendelenburg position. Small bowel was delivered out of the pelvis. Suction irrigation was performed and prior areas of dissection and were found to be hemostatic in nature. Next I had my underwriting assistant then advance the stapler through the anus and advanced the stapler up to the staple line involving the proximal rectum. The trocar portion of the stapler was then allowed to exit adjacent to the staple line under direct visualization upon the proximal rectum. Anvil portion of the stapler was then attached to the trocar portion of the stapler laparoscopically. Stapler was then tightened to the appropriate tension and fired. Stapler was then loosened and brought forth out through the anus. Two complete doughnuts were present within the stapler. Saline was then placed in the pelvis and then the patient was taken slightly out of his Trendelenburg position until the anastomosis was covered with saline. A Wavy grasper was then placed upon the remaining descending colon proximal to the anastomosis and placed against the sacral promontory, resulting in occlusion of the colonic lumen. Rigid proctoscope was then placed in the anus and the rectum was inflated until the anastomosis was taut with air and air began to this escape gave out through the anal verge adjacent to the anal verge. At no point in time could one see any bubbles extravasating through the anastomosis. Irrigant was then suctioned till clear. Ports were removed under direct visualization. Pneumoperitoneum was released. Charly wound retractor was removed. The fascial openings at the camera port and the stapler port were then closed in a [id number] fashion with 0 Vicryl. The fascia at the Pfannenstiel incision was closed in a two-layer fashion utilizing #1 PDS suture. All skin incisions were then closed in a subcuticular fashion with 4-0 Monocryl. Dermabond was placed overlying the incisions. Patient has awakened from his anesthetic and currently is in the ICU in stable condition. YAJAIRA
--- NOTE | 2017-04-14 14:45 | Progress Note ---
DATE 04/14/2017 FINDINGS Mr. Bravo today was in good spirits. He denied much in the way of abdominal pain. He has had some flatus. VITALS: Afebrile. Normotensive. Please refer to EMR. ABDOMEN: Soft. Minimal incisional tenderness. LABORATORY/RADIOGRAPH EVALUATION The patient had a CBC today and his white count is 18.3. This most likely is postsurgical related and not secondary to infectious etiology. Hemoglobin was stable at 13.4. BMP was obtained and found to be essentially within normal limits. ASSESSMENT 36-year-old gentleman status post robotic-assisted laparoscopic sigmoid resection secondary to chronic relapsing diverticulitis. Patient doing quite well. PLAN The patient was transferred out of the unit this morning. Will advance his diet as tolerated. Begin pain meds. KARLENE Miller. If the patient tolerating a regular diet tomorrow and has, perhaps, small BM, will possibly discharge tomorrow. I am pleased with the patient's progress at this time. YAJAIRA
[2017-04-14] MEDS: HYDROCODONE/APAP 5mg/325mg TABLET PO PRN (22:20)
[2017-04-15 04:32] VITALS: RESP 16
[2017-04-15] MEDS: HYDROCODONE/APAP 5mg/325mg TABLET PO PRN ×3 (04:40→14:39)
[2017-04-15] MEDS: D5-1/2NS with KCL 20mEq 1,000 ML IV SCH (06:31)
--- NOTE | 2017-04-15 08:01 | General Surgery Progress Note ---
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 The area of most discomfort is to the right of the pfannenstiel incision), flatus, no bowel movement, afebrile - Vital Signs Last Vital Signs Temp 96.9 F 04/15/17 04:31 Pulse 49 L 04/15/17 04:31 Resp 16 04/15/17 04:31 BP 141/85 H 04/15/17 04:31 Pulse Ox 100 04/15/17 04:31 - Laboratory Result Diagrams: 04/15/17 05:51 04/15/17 05:51 - Abnormal Exam Cardiovascular: other (sinus bradycardia, without ectopy) - Normal Exam General: no acute distress Cardiovascular: regular rhythm, regular rate Respiratory: equal bilaterally Abdominal: appropriately tender (mostly at pfannenstiel incision area), no guarding Psychiatric: normal affect Wound/Stoma/Drain Assessment - Wound Management Lower Medial Abdomen Wound Type: Surgical Incision (CDI, early ecchymosis around pfannenstiel incision, DermaBond in tact) Assessment and Plan (1) History of diverticulitis of colon Current Visit: Yes Status: Acute (2) HTN (hypertension) Current Visit: Yes Status: Chronic Qualifiers: Hypertension type: essential hypertension Qualified Code(s): I10 - Essential (primary) hypertension Plan: He is doing very well for POD #2. Passing flatus, denies abd pain other than incisional, denies nausea, requesting regular diet. VSS, denies chest pain, SOA, dizziness. 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 Advance diet to regular today. Dulcolax supp Consider discharge tomorrow. Hospital Course Summary Disclaimer: The visit summary below is not to be considered part of the above Progress Note. Hospital Course: 04/13/17 Admitted for elective robotic sigmoid resection due to recurrent diverticulitis. Transferred to CCU post op for close monitoring. 04/14/17 POD #1 Doing well, pain reasonably controlled, passing flatus, VSS. Transferred to surgical floor. 04/15/17 08:07 He is doing very well for POD #2. Passing flatus, denies abd pain other than incisional, denies nausea, requesting regular diet. VSS, denies chest pain, SOA, dizziness. 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 Advance diet to regular today. Sepsis Assessment - Evaluation Sepsis screening result: No Definite Risk
[2017-04-15] MEDS: ENOXAPARIN 40 MG/0.4 ML INJECTION SQ SCH (08:20)
[2017-04-15] MEDS ORDERED: BISACODYL 10 MG SUPPOSITORY RECTALLY ONE (08:55)
[2017-04-15 11:59] VITALS: BP 129/84; PULSE 73; TEMP 97.4; O2SAT 98
--- NOTE | 2017-04-15 14:17 | Progress Note ---
DATE 04/15/2017 FINDINGS Patient without complaints today. He still has been without bowel movement. Denies significant abdominal pain. VITALS: Afebrile. Normotensive. The patient does have some bradycardia but remains asymptomatic. ABDOMEN: Soft. Minimal incisional tenderness present. LABORATORY/RADIOGRAPH EVALUATION The patient had a CBC today and his white count is on a downward trend at 10.6. Hemoglobin is overall stable at 12.7. BMP obtained and found to be essentially within normal limits. ASSESSMENT 36-year-old gentleman status post robotic-assisted laparoscopic sigmoid resection. Patient is currently doing well. PLAN I did briefly speak with the cardiology nurse practitioner this morning. She informed me that as long as the patient remains asymptomatic they would not initiate any type of medical treatment for his mild bradycardia. The patient has seen cardiology multiple times in the past. He informs me that he has in fact even undergone a prior heart catheterization. He informs me that he has been told that he has mitral valve prolapse. Will continue to follow the patient in regard to his bradycardia. YAJAIRA
--- NOTE | 2017-04-15 15:07 | Discharge Instructions ---
Discharge Plan - Med Rec/Dispo Referrals/Follow Up: Steve Lui MD [Physician] - 04/29/17 8:45 am Jessica Instructions: Bowel Resection (DC) Prescriptions: New Hydrocodone/APAP 5/325 [[place]umway 5/325] 1 - 2 tab PO Q5H PRN #30 tablet PRN Reason: Pain Ibuprofen [Ibuprofen Ib] 2 - 3 tab PO Q4H PRN #30 tab PRN Reason: Pain Polyethylene Glycol 3350 [Miralax] 17 gm PO DAILY PRN #10 [id number] PRN Reason: Constipation Discontinued Acetaminophen [Tylenol] 1 - 2 tab PO PRN PRN PRN Reason: Pain Sulfamethox/Tmp [Bactrim Ds] 1 tab PO DAILY - Disposition 01 Discharged Home, Self-Care
--- NOTE | 2017-04-15 15:15 | Discharge Summary ---
Discharge Information Date of admission: 04/13/17 09:14 Anticipated date of discharge: 04/15/17 Attending Physician: Steve Lui MD Primary care physician: Walter Garcia MD Consults: 04/13/17 08:54 Consult to Anesthesiology [CONS] Routine Consulting Provider: ARMOND Garcia Reason For Exam: preop assessment - Discharge Diagnosis (1) History of diverticulitis of colon Status: Resolved (2) HTN (hypertension) Qualifiers: Hypertension type: essential hypertension Qualified Code(s): I10 - Essential (primary) hypertension Status: Chronic (3) Symptomatic sinus bradycardia Status: Resolved - Procedures Procedures: DATE OF SERVICE 04/13/2017 SURGEON Steve Lui MD ASSISTAMT Joao Bravo APRN, [facility]- PREOPERATIVE DIAGNOSIS Personal history for chronic relapsing diverticulitis. POSTOPERATIVE DIAGNOSIS Personal history for chronic relapsing diverticulitis. PROCEDURE Robotic assisted laparoscopic sigmoid resection with coloproctostomy, mobilization of splenic flexure. - Laboratory Labs: 04/15/17 05:51 04/15/17 05:51 - Pathology Pending at time of discharge. - History of Present Illness HPI: BRIEF HISTORY/INDICATIONS Mr. Bravo is a 36-year-old gentleman who, despite his young age, has had significant bouts of diverticulitis. Patient in the past was hospitalized at [facility] a result of a pericolonic abscess from diverticulitis. This did require percutaneous drainage. The patient has had multiple additional bouts of diverticulitis requiring outpatient and inpatient oral and intravenous antibiotics. Unfortunately the patient has essentially developed a chronic relapsing diverticulitis requiring multiple courses of antibiotics. He did undergo a colonoscopy and was found to have several diverticula within the sigmoid colon region. Patient was also found to have a few polyps that were removed in their entirety endoscopically. There was no evidence for inflammatory bowel disease. As a result of the above indications, it was recommended to the patient that he undergo an elective sigmoid resection. Hospital Course This is a general summary of the patient's hospital course. For more details refer to the complete medical record. Hospital course: 04/13/17 Admitted for elective robotic sigmoid resection due to recurrent diverticulitis. Transferred to CCU post op for close monitoring. 04/14/17 POD #1 Doing well, pain reasonably controlled, passing flatus, VSS. Transferred to surgical floor. 04/15/17 08:07 He is doing very well for POD #2. Pain well controlled with Hiko. Passing flatus, denies abd pain other than incisional, denies nausea, requesting regular diet. VSS, Asymptomatic sinus bradycardia in the 40's and 50's, denies chest pain, SOA , dizziness. DC [employer], telemetry, and IV fluids. Regular diet for breakfast and lunch. He had BM this afternoon. DC to home today. F/U April [address] Lui for routine post op. Time spent with patient: 25 - 35 minutes DVT Prophylaxis: SCD's, Lovenox GI Prophylaxis: Protonix Discharge Plan - Med Rec/Dispo Referrals/Follow Up: Steve Lui MD [Physician] - 04/29/17 8:45 am Jessica Instructions: Bowel Resection (DC) Prescriptions: New Hydrocodone/APAP 5/325 [Hiko 5/325] 1 - 2 tab PO Q5H PRN #30 tablet PRN Reason: Pain Ibuprofen [Ibuprofen Ib] 2 - 3 tab PO Q4H PRN #30 tab PRN Reason: Pain Polyethylene Glycol 3350 [Miralax] 17 gm PO DAILY PRN #10 powd.pack PRN Reason: Constipation Discontinued Acetaminophen [Tylenol] 1 - 2 tab PO PRN PRN PRN Reason: Pain Sulfamethox/Tmp [Bactrim Ds] 1 tab PO DAILY - Disposition 01 Discharged Home, Self-Care
== END 2017-04-15 15:28 | disposition home or self-care (01) | DRG 331 ==
LOC: CCU 09:14 → SRG 04-14 08:35
PROVIDERS: ADMIT Surgery; ATTEND Surgery